=== PATIENT | female | born 1975 | race Caucasian/White ===

== ENCOUNTER 2023-10-07 08:13 | Emergency (ER) | payer OTHER, SELFPAY ==
[2023-10-07 08:16] VITALS: BP 200/120; RESP 20; TEMP 36.6; O2SAT 98; BMI 25.6
--- NOTE | 2023-10-07 08:25 | ECG_ITS ---
The [facility] Test Date: 2023-10-07 Pat Name: NINO GALLAGHER Department: Room: - Gender: Female Manager Paid: : 1975 Requested By: [id number] Order Number: [id number] Reading MD: MALDONADO MOSS Measurements Intervals [place] Rate: 75 P: 32 MT: 144 QRS: 34 QRSD: 82 T: 36 QT: 374 QTc: 403 Interpretive Statements 1100 Sinus rhythm 9110 normal ECG No previous ECG available for comparison Electronically Signed On 10-08-2023 7:01:27 EST by MALDONADO MOSS
--- NOTE | 2023-10-07 08:34 | CT_ITS ---
The [address] [address] Patient Name: NINO GALLAGHER MRN: [id number] date: 1975 Sex: F Assigned Patient Location: ER Current Patient Location: .[facility] Accession/Order Number: [id number] Exam Date: 10/07/2023 09:02 Report Date: 10/07/2023 09:23 At the request of: ALDEN SYED Procedure: CT head/brain wo con EXAM: CT head/brain wo con, CT cervical spine wo con HISTORY: Dizziness following fall 5 days ago COMPARISON: None. TECHNIQUE: Axial noncontrast CT imaging of the head and cervical spine was performed with coronal and sagittal reformats. This CT exam was performed using one or more of the following dose reduction techniques: Automated exposure control, adjustment of the MA and/or kV according to patient size, or use of iterative reconstruction technique. FINDINGS: CT head Calvarium/skull base: No evidence of acute fracture or destructive lesion. Mastoids and middle ears demonstrate no substantial mucosal disease. Paranasal sinuses: No air fluid levels. Brain: No acute intracranial hemorrhage. No acute large vascular territory infarct. No mass lesion or mass effect. No hydrocephalus. CT cervical spine Alignment: No substantial subluxation. Vertebrae: Vertebral body heights are maintained. No fracture. Craniocervical junction: No focal abnormality. Degenerative changes: Mild degenerative changes of lower cervical spine with posterior disc osteophyte complexes at C5-C6 and C6-C7 with moderate disc height loss at C7 and associated uncovertebral arthropathy at these levels greater on the left. There is associated mild canal stenosis and moderate left foraminal stenosis at C6. Additional Comments: Visualized portion of upper lungs are clear. Soft tissues of the neck are grossly unremarkable. CT/CT head/brain wo con IMPRESSION: 1. No CT evidence for acute intracranial process. 2. No acute fracture or malalignment of the cervical spine. Electronically authenticated by: JOAN KITCHEN Date: 10/07/2023 09:23
--- NOTE | 2023-10-07 08:51 | CT_ITS ---
The [address] [address] Patient Name: NINO GALLAGHER MRN: [id number] date: 1975 Sex: F Assigned Patient Location: ER Current Patient Location: .[facility] Accession/Order Number: [id number] Exam Date: 10/07/2023 09:02 Report Date: 10/07/2023 09:23 At the request of: ALDEN SYED Procedure: CT cervical spine wo con EXAM: CT head/brain wo con, CT cervical spine wo con HISTORY: Dizziness following fall 5 days ago COMPARISON: None. TECHNIQUE: Axial noncontrast CT imaging of the head and cervical spine was performed with coronal and sagittal reformats. This CT exam was performed using one or more of the following dose reduction techniques: Automated exposure control, adjustment of the MA and/or kV according to patient size, or use of iterative reconstruction technique. FINDINGS: CT head Calvarium/skull base: No evidence of acute fracture or destructive lesion. Mastoids and middle ears demonstrate no substantial mucosal disease. Paranasal sinuses: No air fluid levels. Brain: No acute intracranial hemorrhage. No acute large vascular territory infarct. No mass lesion or mass effect. No hydrocephalus. CT cervical spine Alignment: No substantial subluxation. Vertebrae: Vertebral body heights are maintained. No fracture. Craniocervical junction: No focal abnormality. Degenerative changes: Mild degenerative changes of lower cervical spine with posterior disc osteophyte complexes at C5-C6 and C6-C7 with moderate disc height loss at C7 and associated uncovertebral arthropathy at these levels greater on the left. There is associated mild canal stenosis and moderate left foraminal stenosis at C6. Additional Comments: Visualized portion of upper lungs are clear. Soft tissues of the neck are grossly unremarkable. CT/CT cervical spine wo con IMPRESSION: 1. No CT evidence for acute intracranial process. 2. No acute fracture or malalignment of the cervical spine. Electronically authenticated by: JOAN KITCHEN Date: 10/07/2023 09:23
--- NOTE | 2023-10-07 08:52 | ED.GENADUL1 ---
HPI - General Adult General Chief complaint: Head Injury Stated complaint: FALL/ DIZZINESS Time Seen by Provider: 10/07/23 08:31 Source: patient Mode of arrival: walk-in Limitations: no limitations History of Present Illness HPI narrative: Patient is a Did show female who is presenting to the Emergency Room today after head injury that occurred 5 days ago. Patient was walking with shoes on a wet floor, patient slipped and landed backwards and hit the back of her head. Patient is not loose consciousness that she is aware of. Patient's injury occurred last October 02. Patient then woke up on October 03 and was having headache and bilateral neck pain. Patient's had no nausea or vomiting. Patient has been taking Tylenol Motrin for pain. Patient was due to go back to work today and she continued to have headache and bilateral neck pain so she came into the Emergency Room for evaluation. Patient was able to eat Friday with no difficulty, patient ate yesterday and today with no difficulty, patient did have nausea and vomiting on Friday. Patient has no arm or leg concerns, no other back pain issues is Soft tissue bilateral neck. Patient is placed in the room, cervical collar was placed. Patient is alert and sensory, GCS of 15. Patient is aware that she has high blood pressure, patient told me that she is a DNR. DNR status was discussed, she does see a psychiatrist and does take medication for that. She takes no blood pressure medication. Patient says that she had her son age of 26, and she does not want to be resuscitated if needed. Education the patient can still seek medical care, high blood pressure, cholesterol, diabetes or other issues treated if needed. Patient is aware that she is a very high risk for cardiac event, stroke, or cardiovascular disease secondary to uncontrolled blood pressure. Patient states that she has hypertension, does not like to be in the hospital or see DrsLonny, but is aware that blood pressure should be treated. Patient has no other acute complaints this time. Patient was brought to the Emergency Room by a friend. 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 . All systems are negative except as noted/marked. All systems reviewed and otherwise negative. . Nurses note and vital signs reviewed and patient is not hypoxic. General: The patient appears well and in no apparent distress. Patient is resting comfortably on cart. Patient is not toxic, lethargic, or listless Skin: Warm, dry, no pallor noted. There is no rash noted. No petechiae, purpura. Head: Normocephalic, atraumatic, Patient's placed in a soft fell off her collar, patient has mild to moderate soft tissue tenderness palpation to paracervical soft tissue, no cervical midline tenderness palpation. Patient has no scalp hematoma. Eye: Normal conjunctiva, no drainage, EOMI. PERRL Ears, Nose, Mouth, and Throat: oral mucosa is moist. Nares patent. Mouth without vesicles. No hemotympanum, fraser signs, raccoon eyes Cardiovascular: Regular Rate and Rhythm, no murmur, gallop, rub Respiratory: Patient is in no distress, no accessory muscle use, lungs are clear to auscultation, no wheezing, rales or rhonchi Back: non-tender, no CVA tenderness bilaterally to percussion. No CT LS midline pain GI: soft, no tenderness to palpation, no masses appreciated. No rebound, guarding, or rigidity noted. No flank pain bilateral, No distention Musculoskeletal: Patient has full range of motion of all of the extremities, no motor, sensory, or focal neurological deficits Neurological: A&O x3, normal speech Psychiatric: Cooperative Related Data Home Medications Medication Instructions Recorded Confirmed alprazolam 1 mg tablet 1 mg PO TID PRN anxiety 10/07/23 10/07/23 cyclobenzaprine 10 mg tablet 10 mg PO Q8H PRN muscle spasm 10/07/23 10/07/23 lamotrigine 100 mg tablet 100 mg PO DAILY 10/07/23 10/07/23 ramelteon 8 mg tablet 8 mg PO BEDTIME 10/07/23 10/07/23 Allergies Allergy/AdvReac Type Severity Reaction Status Date / Time Latex, Natural Rubber Allergy Severe Verified 10/07/23 08:26 PFSH PFS Social History Smoking status: Light tobacco smoker Exam Constitutional Vital Signs, click to edit/add: Last Vital Signs Temp 98 F 10/07/23 08:16 Resp 20 10/07/23 08:16 BP 190/120 H 10/07/23 09:17 Pulse Ox 98 10/07/23 08:16 Course Vital Signs Vital signs: Vital Signs Temperature 98 F 10/07/23 08:16 Respiratory Rate 20 10/07/23 08:16 Blood Pressure 200/120 H 10/07/23 08:16 Pulse Oximetry 98 10/07/23 08:16 Temperature 98 F 10/07/23 08:16 Respiratory Rate 20 10/07/23 08:16 Blood Pressure 190/120 H 10/07/23 09:17 Pulse Oximetry 98 10/07/23 08:16 Medical Decision Making MDM Narrative Medical decision making narrative: CT brain and cervical spines show no acute findings. Patient's cervical collar was clinically and radiographically removed. Patient is aware of hypertension uncontrolled. Education was done on blood pressure medication, the need for follow-up for PCP and to take elevated blood pressure seriously because she is a significant risk for cardiovascular disease, myocardial infarction, stroke. Patient is not seen a PCP for years. Patient was provided a PCP list. Patient was educated on taking blood pressure once or twice a day and purchasing a blood pressure cuff at home. Patient is awareTake her blood pressure twice daily, record them, follow-up with PCP for definitive medication treatment needed. Education on work restrictions and postconcussion syndrome were done at bedside and on discharge. No questions at discharge. ECG Data Attestation: I personally reviewed and interpreted this ECG as follows: (EKG interpretation. Normal sinus rhythm at 75 beats a minute. Normal axis deviation. No acute ST elevation, no acute ectopy. QTC of 403) Discharge Plan Discharge Chief Complaint: Head Injury Clinical Impression: Uncontrolled hypertension, Closed head injury, Post-concussion syndrome, Cervical pain (neck) Patient Disposition: Home, Self-Care Time of Disposition Decision: 10:02 Condition: Fair Prescriptions / Home Meds: No Action alprazolam 1 mg tablet 1 mg PO TID PRN (Reason: anxiety) cyclobenzaprine 10 mg tablet 10 mg PO Q8H PRN (Reason: muscle spasm) lamotrigine 100 mg tablet 100 mg PO DAILY ramelteon 8 mg tablet 8 mg PO BEDTIME Instructions: Head Injury (ED), Post Concussion Syndrome (ED), Hypertension (ED), Acute Neck Pain (ED) Additional Instructions: Your Blood pressure has been elevated, it is equal in both arms. You need to follow up and establish PCP and start to have Medication prescribed for her blood pressure if indicated. Take your blood pressure Once or twice a day with a home blood pressure cuff, record them daily. You are starting to create a blood pressure log to see if you have chronic elevated blood pressure medication as needed. Education on postconcussion syndrome was done at bedside and on discharge paperwork. Alternate Tylenol Motrin as needed at home for pain. Use ice and cervical stretching daily to help with neck pain. Stand Alone Forms: Portal Instructions Referrals: Physician,Non-Staff, MD [Primary Care Provider] - 1 week
[2023-10-07 09:17] VITALS: BP 190/120
[2023-10-07 10:33] VITALS: BP 180/110
== END 2023-10-07 10:41 | disposition home or self-care (01) ==
PROVIDERS: Emergency Provider Emergency Medicine
DX: S09.8XXA Other specified injuries of head, initial encounter (principal); F17.200 Nicotine dependence, unspecified, uncomplicated; M54.2 Cervicalgia; I10 Essential (primary) hypertension; W01.0XXA Fall on same level from slipping, tripping and stumbling without subsequent striking against object, initial encounter; F07.81 Postconcussional syndrome
CPT/HCPCS: 70450; 72125; 93005; 99285

== ENCOUNTER 2025-08-04 08:36 | Emergency (ER) | payer OTHER, SELFPAY ==
--- OUTSIDE RECORDS SUMMARY | 2025-07-21 08:00 | XMS_ITS | Encounter Summary ---
Author Organization [facility] Address [address] [place] [address] Care Team Providers Care Medical Front Desk Specialist Name Role Phone Unavailable Primary Care Provider Unavailabl e Reason for Visit * ReasonCommentsFollow-upPain Encounter Details DateTypeDepartmentCare Team (Latest Contact Info)Cbynzkrhcun72/16/2025 8:00 AM EDTOffice Visit [facility] [address] [place] [address] [address] [place] [address] Venu Murphy MD [address] [place] [address] Closed fracture of distal ends of right radius and ulna with routine healing, subsequent encounter (Primary Dx) Social History Tobacco UseTypesPacks/DayYears UsedDateSmoking Tobacco: NeverSmokeless Tobacco: Never Tobacco Cessation:Counseling Given: Not Answered Alcohol UseStandard Drinks/WeekCommentsNot Currently0 (1 standard drink = 0.6 oz pure alcohol)Social, havent for yearsHumiliation, Afraid, Rape, and Kick questionnaireAnswerDate RecordedWithin the last year, have you been afraid of your partner or ex-partner?No07/21/2025Emotionally AbusedNot on file07/21/2025 Physically AbusedNot on file07/21/2025Sexually AbusedNot on file07/21/2025 Overall Financial Resource Strain (CARDIA)AnswerDate RecordedHow hard is it for you to pay for the very basics like food, housing, medical care, and heating?Not hard at all09/19/2022HQ-2AnswerDate RecordedPatient Health Questionnaire-2 [id number] [place] [facility] - Occupational Stress QuestionnaireAnswerDate RecordedDo you feel stress - tense, restless, nervous, or anxious, or unable to sleep at night because yourmind is troubled all the time - these days?Not at all09/19/2022RAPARE - TransportationAnswerDate RecordedIn the past 12 months, has lack of transportation kept you from medical appointments or from getting medications?No09/19/2022In the past 12 months, has lack of transportation kept you from meetings, work, or from getting things needed for daily living?No09/19/2022CommentsUnknownSex and Gender InformationValueDate RecordedSex Assigned at HxlzmAbtrhf87/16/2025 7:49 AM EDT Legal SznSzajrw96/30/2022 12:31 AM EDTGender LpqvhdiiVsksiw19/16/2025 7:49 AM EDTSexual OrientationChoose not to lnqmheic82/16/2025 7:49 AM EDTdocumented as of this encounter Last Filed Vital Signs Vital SignReadingTime TakenCommentsBlood Pressure--Pulse--Temperature-- Respiratory Rate--Oxygen Saturation--Inhaled Oxygen Concentration--Xbqrnk35 kg (150 lb)07/21/2025 8:10 AM EDTHeight--Body Mass Index27.44111/20/2021 10:30 AM ESTdocumented in this encounter Functional Status * Fall RiskQuestionAnswerDate of AssessmentAuthorWorried about fallin 07/21/2025 8:00 AM Donna Curry MAOne or more falls in the last year:No 07/21/2025 8:00 AM Donna Curry MAFeels unsteady when walkin 8:00 AM Donna Curry MA * Over the past 2 weeks, how often have you been bothered by any of the following problems?QuestionAnswerDate of AssessmentAuthorLittle interest or pleasure in doing thingsNot at all07/21/2025 8:00 AM Donna Curry MA Feeling down, depressed, or hopelessNot at all07/21/2025 8:00 AM Donna Curry, [facility] Health Questionnaire-2 [id number] 8:00 AM Donna Curry MA documented as of this encounter Progress Notes * Venu Murphy MD - 07/21/2025 8:00 AM EDT Images from the original note were not included. Orthopaedic Surgery Subjective 07/21/25 Pati Koch is a 49 y.o. RHD female presenting for follow up of right wrist pain. She was originally seen in 2021 for an extra-articular distal radius fracture she sustained in 2020, which was treated nonoperatively with conservative management and occupational therapy. Today she presents with an application for disability. She explains they added her wrist as a diagnosis for the application. She is endorsing pain and swelling of the wrist, with some radiation into the upper arm after prolonged use. Mobic for pain has been helping. She has also been icing and bracing for other conservative management. She is currently on a 40 pound restriction from occupational health. History Surgical History[1] Medical History[2] Objective General: There is no height or weight on file to calculate BMI. No acute distress, comfortable Right UE/Hand: Inspection- no swelling, no deformity or contracture, supple skin with no lesions Non-tender to palpation throughout, including wrist and lateral epicondyle palpation ROM: Able to make fist, flexion to 50 degrees, extension to 70. Full pronation and supination. Ulnar deviation to 35 degrees, radial deviation to 25 degrees. Strength: keeper head 5/5, thumb 5/5, interossei 5/5. wrist extension/flexion 5/5 Sensation: intact over median, ulnar, and radial nerve distributions Thumb: normal A1 elsie and AROM, Index finger: normal A1 elsie and AROM, Long finger: normal A1 elsie and AROM, Ring finger: normal A1 elsie and AROM, and Small finger: normal A1 elsie and AROM Negative carpal tunnel compression test and Negative Jimena's test Cardiovascular: Well-perfused digits Imaging No imaging performed at this visit. Assessment/Plan Pati Koch is a 49 y.o. female with right extra-articular distal radius fracture sustained in 2020. She is here to discuss application for disability. -Continue 40 lb restriction as described by occupational health -Return to clinic as needed Nito Allen Orthopaedic Surgery 07/21/25 7:52 AM As the teaching physician, I have personally performed or re-performed the history of present illness, physical exam and medical decision-making activities of the encounter and verified the medical student's documentation. I made pertinent changes as necessary to ensure accurate documentation. There may be additional comments below. Additional Comments: [1] No past surgical history on file. [2] Past Medical History: Diagnosis Date Radius fracture 2021 right documented in this encounter Plan of Treatment Not on file documented as of this encounter Visit Diagnoses Diagnosis Closed fracture of distal ends of right radius and ulna with routine healing, subsequent encounter- Primary documented in this encounter
[2025-08-04] VITALS (16 sets, daily range): BP systolic 147–209; BP diastolic 100–138; PULSE 70–95; TEMP 36.9; O2SAT 92–99; BMI 26.5
--- NOTE | 2025-08-04 08:53 | ECG_ITS ---
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 Measurements Intervals [place] Rate: 91 P: 35 [place]: 144 QRS: 26 QRSD: 86 T: 54 QT: 346 QTc: 395 Interpretive Statements 1100 Sinus rhythm 6220 Possible left atrial enlargement 9130 borderline ECG Compared to ECG 10/07/2023 08:25:24 No significant changes Electronically Signed On 08-04-2025 13:17:42 EDT by CHRISTI ALEXANDRE M.D.
--- NOTE | 2025-08-04 08:53 | XR_ITS ---
The [address] [address] Patient Name: NINO GALLAGHER MRN: [id number] date: 1975 Sex: F Assigned Patient Location: ED.MAIN Current Patient Location: ED.MAIN Accession/Order Number: [id number] Exam Date: 08/04/2025 09:15 Report Date: 08/04/2025 09:32 At the request of: LAURITA SHERIDAN Procedure: XR chest 1V Plain film chest Single view HISTORY: Chest pain COMPARISON: None FINDINGS: SUPPORT DEVICES: None POSTSURGICAL CHANGES: None HEART: Within normal limits PULMONARY DONALDO: Within normal limits MEDIASTINUM: Unremarkable LUNGS AND PLEURA: No acute lung process, pleural effusion or pneumothorax identified. BONY STRUCTURES: Intact ADDITIONAL FINDINGS None XR/XR chest 1V IMPRESSION: No acute process. Impression dictated by: Jamel Franco M.D. 08/04/2025 9:32 AM Dictation Location: [place] [address] Electronically authenticated by: [id number] Date: 08/04/2025 09:32
--- NOTE | 2025-08-04 08:54 | ED_ITS ---
HPI - Chest Pain General Chief Complaint: Chest Pain Stated Complaint: CHEST PAIN Time Seen by Provider: 08/04/25 08:52 Source: patient Mode of arrival: walk-in Limitations: no limitations History of Present Illness HPI narrative: cc - chest pain Started this morning around 730am. Pain radiates from mid chest into ribs and back. Admits to some nausea but no vomiting. Told the pattie nurse that the symptoms felt different than her prior symptoms associated with panic attacks. She said that she stopped taking her meds for BP on my own a few weeks ago. She said that she does not want to take any prescribed meds. She said that she lost her son recently and has no interest in self-care. She denies being suicidal. I just don't want to take any medicines . Related Data Home Medications ?Medication ?Instructions ?Recorded ?Confirmed alprazolam 1 mg tablet 1 mg PO TID PRN anxiety 11/2908/04/25 lamotrigine 100 mg tablet 100 mg PO DAILY 10/07/23 Allergies Allergy/AdvReac Type Severity Reaction Status Date / Time Latex, Natural Rubber Allergy Severe Verified 10/07/23 08:[address] [facility] Social History Smoking status: Light tobacco smoker Little interest or pleasure in doing things: not at all Feeling down, depressed, or hopeless: several days Exam Narrative Exam Narrative: Nurses notes and vital signs reviewed and patient is not hypoxic. afebrile General: Well-appearing and in no apparent distress. Skin: Warm, dry, no pallor noted. Eye: Pupils are equal, round and EOMI. No scleral icterus. Ears, Nose, Mouth, and Throat: Oral mucosa is moist Cardiovascular: Regular Rate and Rhythm without murmur, gallop or rub. Respiratory: No accessory muscle use or respiratory distress. Lungs are clear to auscultation, no wheezing, rales or rhonchi Chest Wall: no tenderness Musculoskeletal: normal ROM, no calf or popliteal tenderness, no lower extremity edema/swelling GI: Abdomen is soft, non-distended. Normal bowel sounds. No tenderness to palpation. No rebound, guarding, or rigidity noted. Neurological: A&O x4. No cranial nerve dysfunction observed. No truncal ataxia. Moves all extremities. Sensation intact. Psychiatric: Cooperative and interactive. Normal mood and affect. Constitutional Vital Signs, click to edit/add: Last Vital Signs Temp 98.4 F 08/04/25 08:47 Pulse 90 08/04/25 08:47 Resp 20 08/04/25 08:47 BP 184/120 H 08/04/25 09:00 Pulse Ox 99 08/04/25 08:47 O2 Del Method Room Air 08/04/25 08:47 Course Vital Signs Vital signs: Vital Signs Temperature 98.4 F 08/04/25 08:47 Pulse Rate 90 08/04/25 08:47 Respiratory Rate 20 08/04/25 08:47 Blood Pressure 201/118 H 08/04/25 08:47 Pulse Oximetry 99 08/04/25 08:47 Oxygen Delivery Method Room Air 08/04/25 08:47 Temperature 98.4 F 08/04/25 08:47 Pulse Rate 90 08/04/25 08:47 Respiratory Rate 20 08/04/25 08:47 Blood Pressure 184/120 H 08/04/25 09:00 Pulse Oximetry 99 08/04/25 08:47 Oxygen Delivery Method Room Air 08/04/25 08:47 MDM - Chest Pain MDM Narrative Medical decision making narrative: Patient was placed on cardiac rehabilitation program director and EKG obtained. Blood drawn and sent for evaluation. She was ordered to receive labetalol for her markedly elevated blood pressure. CBC was notable for anemia which appears to be iron deficient-based. Hemoglobin 9 BMP was normal and troponin and BNP are negative. EKG without ST elevation or other ischemic changes. Chest x-ray negative. Her blood pressure improved with administration of labetalol. I offered to give her IV Vasotec but she refused. I talked to her about her results and my concern about her markedly elevated blood pressure and refusal to receive treatment for it. She and I discussed the risks associated with untreated high blood pressure including heart attack, stroke, kidney failure, blindness and a variety of other potential issues inclu ding . I offered to prescribe her medication for blood pressure control and she refused. She does not have a primary care provider so I offered to refer her to 1 and she refused that as well. She told me anything that gets prescribed or any referrals that are made I am not going to take the medicine I am not going to follow-up. Differential Diagnosis Differential diagnosis: Likely pneumothorax, stable angina, unstable angina pectoris, atypical chest pain, st elevation myocardial infarction, costochondritis and chest pain Medical Records Data Attestation: I reviewed the patient's medical records. Lab Data Attestation: I reviewed the patient's lab results. Labs: Lab Results 08/04/25 Range/Units 08:55 WBC 4.4 (4.0-11.0) 10^3/uL RBC 4.85 (4.20-5.40) 10^6/uL Hgb 9.0 L (12.0-16.0) g/dL Hct 32.5 L (36.0-48.0) % MCV 67.0 L (81.0-99.0) fL MCH 18.6 L (26.7-34.0) pg MCHC 27.7 L (29.9-35.2) g/dL RDW 18.2 H (11.0-15.0) % Plt Count 380 (150-450) 10^3/uL MPV 8.6 L (9.5-13.5) fL Neut % (Auto) 48.6 (43.0-75.0) % Lymph % (Auto) 34.3 (20.5-60.0) % [place] % (Auto) 8.0 (1.7-12.0) % Eos % (Auto) 5.9 (0.9-7.0) % Baso % (Auto) 3.0 H (0.2-2.0) % Neut # (Auto) 2.1 (1.4-6.5) 10^3/uL Lymph # (Auto) 1.5 (1.2-3.8) 10^3/uL [place] # (Auto) 0.4 (0.3-0.8) 10^3/uL Eos # (Auto) 0.3 (0.0-0.7) 10^3/uL Baso # (Auto) 0.1 (0.0-0.1) 10^3/uL Abs Immat Gran (auto) 0.01 (0.00-0.03) 10^3/uL Imm/Tot Granulo (auto) 0.2 (0.0-0.5) % Sodium 137 (136-145) mmol/L Potassium 4.3 (3.5-5.1) mmol/L Chloride 102 (98-107) mmol/L Carbon Dioxide 26.0 (21.0-32.0) mmol/L Anion Gap 13.3 BUN 9.0 (7.0-18.0) mg/dL Creatinine 0.96 (0.55-1.02) mg/dL Est GFR ( Amer) >60 (>=60 mL/min/1.73m^2) Est GFR (Non-Af Amer) >60 (>=60 mL/min/1.73m^2) BUN/Creatinine Ratio 9.4 Glucose 99 (74-106) mg/dL Calcium 9.6 (8.5-10.1) mg/dL Troponin I High Sens 10.3 (4.0-51.3) pg/mL NT-Pro-B Natriuret Pep 380.0 (<=900.0) pg/mL Imaging Data Chest x-ray: Attestation: I have reviewed the pertinent imaging results. Radiologist's impression: ITS Impressions Chest X-Ray 08/04/25 08:53 IMPRESSION: No acute process. Impression dictated by: Jamel Franco M.D. 08/04/2025 9:32 AM Dictation Location: [place] [address] Electronically authenticated by: [id number] Y Date: 08/04/2025 09:32 ECG Data Attestation: I personally reviewed and interpreted this ECG as follows: Interpretation: EKG interpretation:Emergency Department physician interpretation.Normal sinus rhythm at 91bpm. Normal axis, normal intervals and no ST segment elevation or depression. Possible left atrial enlargement. Discharge Plan Discharge Chief Complaint: Chest Pain Clinical Impression: Uncontrolled hypertension, Chest pain Patient Disposition: Home, Self-Care Time of Disposition Decision: 09:55 Prescriptions / Home Meds: No Action alprazolam 1 mg tablet 1 mg PO TID PRN (Reason: anxiety) lamotrigine 100 mg tablet 100 mg PO DAILY Print Language: Icelandic Instructions: Chest Pain (ED), Hypertension (ED) Referrals: Physician,Non-Staff, MD [Primary Care Provider] - 1 week
[2025-08-04] MEDS: LABETALOL HCL 100 MG/20 ML MDV 20 MG IVP (09:03)
[2025-08-04 09:08] LABS: Hematocrit 32.5 % (36.0-48.0); Hemoglobin 9.0 g/dL (12.0-16.0); Immature Granulocytes Abs Auto 0.01 10^3/uL (0.00-0.03); Immature Granulocytes Pct Auto 0.2 % (0.0-0.5); Lymphocytes Absolute Auto 1.5 10^3/uL (1.2-3.8); Mean Corpuscular HGB Conc 27.7 g/dL (29.9-35.2); Mean Corpuscular Hemoglobin 18.6 pg (26.7-34.0); Mean Corpuscular Volume 67.0 fL (81.0-99.0); Platelet Count 380 10^3/uL (150-450); Red Blood Count 4.85 10^6/uL (4.20-5.40); White Blood Count 4.4 10^3/uL (4.0-11.0)
--- OUTSIDE RECORDS SUMMARY | 2025-08-04 09:10 | XMS_ITS | Clinical Summary ---
Author Organization [facility] Address [address] [facility] [place] [address] Care Team Providers Care Diesel Service Journeyman Name Role Phone Unavailable Primary Care Provider Unavailabl e Social History Tobacco UseTypesPacks/DayYears UsedDateSmoking Tobacco: Never Assessed CommentsUnknownSex and Gender InformationValueDate RecordedSex Assigned at Not on fileLegal JkpIyllbp48/15/2023 11:09 PM EDTGender IdentityNot on file Sexual OrientationNot on file Plan of Treatment Not on file
--- OUTSIDE RECORDS SUMMARY | 2025-08-04 09:10 | XMS_ITS | Clinical Summary ---
Author Organization [facility] Address [id number] [place] [address] Care Team Providers Care Day Light Relief Operator Name Role Phone No Pcp, No Pcp Primary Care Provider Unavailabl e Allergies Active AllergyReactionsCriticalityNoted DateCommentsLatex, Natural Rubber 05/30/2017 Medications * This document contains information received from the source organization and may not represent a complete record from that organization. MedicationSigDispense QuantityRefillsLast FilledStart DateEnd DateStatus diclofenac sodium (VOLTAREN) 1 % gel 01/05/2022ctive meloxicam (MOBIC) 7.5 mg tablet 11/13/2023ctive lamoTRIgine (LaMICtal) 100 mg tablet Indications:Bipolar II disorder (CMS-HCC)Take 2 tablets (200 mg total) by mouth in the morning and 2 tablets (200 mg total) before bedtime. 360 tablet 5Active ALPRAZolam (XANAX) 1 mg tablet Indications:Panic disorderTake 1 tablet (1 mg total) by mouth 4 (four) times a day as needed for anxiety. 120 tablet 5Active lamoTRIgine (LaMICtal) 100 mg tablet Indications:Bipolar II disorder (CMS-HCC)Take 2 tablets (200 mg total) by mouth in the morning and 2 tablets (200 mg total) before bedtime. 120 tablet 507///05/2025Discontinued ALPRAZolam (XANAX) 1 mg tablet Indications:Panic disorderTake 1 tablet (1 mg total) by mouth 4 (four) times a day as needed for anxiety. 120 tablet 108/12/Discontinued(Reorder) Active Problems ProblemNoted DateDiagnosed DateDepression with suicidal gwyosmys05/09/2025 Bipolar disorder, current episode mixed, severe, without psychotic features 4Complicated aakbadlceqn88/06/2017Panic gwfolxzl63/06/2017 Resolved Problems ProblemNoted DateDiagnosed DateResolved DateBipolar II /01/2018 5Bipolar dqatqsiygo12 Encounters * This document contains information received from the source organization and may not represent a complete record from that organization. DateTypeDepartmentCare SboaCpqqvjamtwi33/14/8787Amhbku34/13/7878Ocdhvm11/12/2025 Travelfrom Last 3 Months Social History Tobacco UseTypesPacks/DayYears UsedDateSmoking Tobacco: Never AssessedChildcare AnswerDate DdwcxrqwQeybqtzdbPcmorxd77/12/2019EmploymentAnswerDate Recorded EhjjytkhgdYpkrkwj19/12/2019Hunger ScreeningAnswerDate RecordedWithin the past 12 months we worried whether our food would run out before we got money to buy more.Never True05/17/2025Within the past 12 months the food we bought just didn't last and we didn't have money to get more.Never True05/17/2025Purpose - LifeAnswerDate RecordedPurpose and direction in kmvxVlovqmi42/25/2021 CommentsUnknownSex and Gender InformationValueDate RecordedSex Assigned at Not on fileLegal BtuOdowox42/06/2015 11:40 AM EDTGender IdentityNot on file Sexual OrientationNot on file Last Filed Vital Signs Vital SignReadingTime TakenCommentsBlood Cphbjhmy216/4927705/17/2025 1:15 PM EDT Ufwdq521105/17/2025 1:15 PM EDTTemperature--Respiratory Rate--Oxygen Saturation-- Inhaled Oxygen Concentration--Kznsxz43.1 kg (148 lb)04/19/2025 2:52 PM EDTHeight --Body Mass Index-- Plan of Treatment Health MaintenanceDue DateLast DoneCommentsDepression Mcxxjkfma36/11/1985Tobacco Bcsfdcobh37/11/1985Adult BMI Zseiogtys43/11/1991DTaP,Tdap and Td Vaccines (1 - Tdap)1992Pap Smear1994Zoster (Shingles) Vaccine (1 of 2)2023 Influenza Mlknjdt0306/06/2025 Medical Devices Not on file Insurance Care Teams Team MemberRelationshipSpecialtyStart DateEnd Date No Pcp, No Pcp DONALDO [place] [id number] [facility]17
--- OUTSIDE RECORDS SUMMARY | 2025-08-04 09:10 | XMS_ITS | Clinical Summary ---
Author Organization [facility] Address [address] [place] [address] Care Team Providers Care Nail Maker Name Role Phone Unavailable Primary Care Provider Unavailabl e Allergies Active AllergyReactionsCriticalityNoted DateCommentsLatex, Natural Rubber 05/30/2017 Medications MedicationSigDispense QuantityRefillsLast FilledStart DateEnd DateStatus lamoTRIgine (LaMICtal) 150 mg tablet lamotrigine 150 mg gnwiow4704/11/2022ctive ALPRAZolam (Xanax) 1 mg tablet alprazolam 1 mg tablet TAKE 1 TABLET BY MOUTH NEEDED IN THE MORNING, AT NOON AND IN THE EVENING FOR ANXIETY.05/01/2022ctive diclofenac (Voltaren) 1 % topical gel diclofenac 1 % topical gel APPLY 1-2 GRAMS TO THE AFFECTED AREA TWICE DAILY FOR 30 DAYS01/05/2022ctive ibuprofen 600 mg tablet ibuprofen 600 mg tablet TAKE 1 TABLET BY MOUTH EVERY 6 HOURS NEEDED. TAKE WITH FOODActive lidocaine (Lidoderm) 5 % patch lidocaine 5 % topical patchActive methylPREDNISolone (Medrol) 4 mg tablet Take 4 mg by mouth in the morning.Active meloxicam (Mobic) 7.5 mg tablet 11/13/2023ctive Active Problems No known active problems Encounters DateTypeDepartmentCare XqixSvevpjeaerv00/16/2025 8:00 AM EDTOffice Visit [address] [place] [address] Venu Murphy MD Closed fracture of distal ends of right radius and ulna with routine healing, subsequent encounter (Primary Dx)07/01/2025Telephone [address] [place] [address] Anjali Parrish MA Appointmentfrom Last 3 Months Family History Medical HistoryRelationNameCommentsCancerFatherJerome dorobekCancerMotherLaDonna DorobekRelationNameStatusCommentsFatherJerome dorobekAliveMotherLaDonna Dorobek Alive Social History Tobacco UseTypesPacks/DayYears UsedDateSmoking Tobacco: NeverSmokeless [...] housing, medical care, and heating?Not hard at all2PHQ-2AnswerDate RecordedPatient Health Questionnaire-2 Sbdsp863Fincedar [facility] [place] of Occupational [facility] - Occupational Stress QuestionnaireAnswerDate [...] or from getting things needed for daily living?No2CommentsUnknownSex and Gender InformationValueDate RecordedSex Assigned at FwaziFitygc95/16/2025 7:49 AM EDT Legal TmcBklawx89/30/2022 12:31 AM EDTGender CdqbnasuErmofa98/16/2025 7:49 AM EDTSexual OrientationChoose not to /16/2025 7:49 AM EDT Last Filed Vital Signs Vital SignReadingTime TakenCommentsBlood Pressure--Pulse--Temperature-- Respiratory Rate--Oxygen Saturation--Inhaled Oxygen Concentration--Pwuctz53 kg (150 lb)07/21/2025 8:10 AM KQNPoogbu071.5 cm (5' 2 )09/19/2022 10:30 AM ESTBody Mass Index27.44111/20/2021 10:30 AM EST Plan of Treatment Health MaintenanceDue DateLast DoneCommentsCT Asmeumscclzx1973Colonoscopy 1973Colorectal Cancer Ssrqyjxhm1973FIT-DNA1973FIT1973 FOBT1973 2887Gbhdtvarsntrl1973Hepatitis B Vaccines (1 of 3 - 19+ 3-dose series)1992Pap Smear1994Adult Vcgbvqa6308/16/1995Cervical Cancer Qvveuswjg31/11/2003HPV/Fatxmn2608/16/20036721Akobshixa71/11/2013Zoster Vaccines (1 of 2)2023Influenza Vaccine (#1)2025Depression Difkvvujh81/16/2026 07/21/2025HIB VaccinesAged OutNo longer eligible based on patient's age to complete this topicHPV VaccinesAged OutNo longer eligible based on patient's age to complete this topicIPV VaccinesAged OutNo longer eligible based on patient's age to complete this topicMeningococcal B VaccineAged OutNo longer eligible based on patient's age to complete this topicMeningococcal VaccineAged OutNo longer eligible based on patient's age to complete this topicPneumococcal Vaccine: Pediatrics (0 to 5 Years) and At-Risk Patients (6 to 64 Years)Aged Out No longer eligible based on patient's age to complete this topicRotavirus VaccinesAged OutNo longer eligible based on patient's age to complete this topic Insurance
--- OUTSIDE RECORDS SUMMARY | 2025-08-04 09:10 | XMS_ITS | Encounter Summary ---
Author Organization [facility] Address [address] [place] [address] Care Team Providers Care Field Collector Name Role Phone Unavailable Primary Care Provider Unavailabl e Reason for Visit * ReasonOnset AdfbGloybvmrZghmlprhnfz64/26/2025 Encounter Details DateTypeDepartmentCare Team (Latest Contact Info)Nsiesgllxcs06/26/2025Telephone [facility] [address] [place] [address] [place] [address] Anjali Parrish MA Appointment Social History Tobacco UseTypesPacks/DayYears UsedDateSmoking Tobacco: NeverSmokeless Tobacco: NeverAlcohol UseStandard Drinks/WeekCommentsNever0 (1 standard drink = 0.6 oz pure alcohol)Humiliation, Afraid, Rape, and Kick questionnaireAnswerDate RecordedWithin the last year, have you been afraid of your partner or ex-partner?No07/21/2025Emotionally AbusedNot on file07/21/2025Physically Abused Not on file07/21/2025Sexually AbusedNot on file07/21/2025Overall Financial Resource Strain (CARDIA)AnswerDate RecordedHow hard is it for you to pay for the very basics like food, housing, medical care, and heating?Not hard at all 09/19/2022HQ-2AnswerDate RecordedPatient Health Questionnaire-2 Score0 07/21/2025[facility] [place] [facility]ational Health - Occupational Stress QuestionnaireAnswerDate RecordedDo you feel stress - tense, restless, nervous, or anxious, or unable to sleep at night because yourmind is troubled all the time - these days?Not at all2PRAPARE - TransportationAnswerDate RecordedIn the past 12 months, has lack of transportation kept you from medical appointments or from getting medications?No09/19/2022In the past 12 months, has lack of transportation kept you from meetings, work, or from getting things needed for daily living?No2CommentsUnknownSex and Gender InformationValueDate RecordedSex Assigned at SrtugZchaow2025 7:49 AM EDT Legal EojMyamtb42/30/2022 12:31 AM EDTGender KubpsfyrOurmyv98/16/2025 7:49 AM EDTSexual OrientationChoose not to hncpdetr00/16/2025 7:49 AM EDTdocumented as of this encounter Functional Status * Fall RiskQuestionAnswerDate [...] or hopelessNot at all07/21/2025 8:00 AM Donna Curry MAPatient Health Questionnaire-2 Snwcn718 8:00 AM Donna Curry MA documented as of this encounter Miscellaneous Notes * Telephone Encounter - Becky Ryan - 07/05/2025 1:18 PM EDT Please register this patient * Telephone Encounter - Anjali Parrish MA - 07/01/2025 11:40 AM EDT Patient called to schedule a new patient appointment with our office. Patient wants to be seen for: right wristq Patient had X ray done at [facility] from 2021 Patient has Not had any surgery or procedures on this body part Patient saw Jeffrey for this issues. They were not referred to us from this provider. This appointment is not a second opionion Needs medical records for medical residential This appointment IS NOT related to a work related injury This appointment IS related to work Claim#: [id number] SSN: [id number] documented in this encounter Plan of Treatment Not on file documented as of this encounter Visit Diagnoses Not on filedocumented in this encounter
--- OUTSIDE RECORDS SUMMARY | 2025-08-04 09:17 | XMS_ITS | CCD ---
Author Organization [facility] Care Team Providers Care Gallery Intern Name Role Phone Richelle Broderick Unavailable PAY, DR RUANO Admitting Unavailable REQUEST, NONE LISTED Primary Care Unavaila ble PAY, DR RUANO Attending Unavailable REQUEST, NONE LISTED Primary Care Unavaila ble ZIEBER, DR MARIBELL Pardo Consulting Unavailable BERT, DORIAN Admitting Unavailable BERT, DORIAN Attending Unavailable BERT, DORIAN Consulting Unavailable REQUEST, NONE LISTED Primary Care Unavaila ble BERT, DORIAN Admitting Unavailable BERT, DORIAN Attending Unavailable ZIEBER, DR MARIBELL Pardo Consulting Unavailable BERT, DORIAN Consulting Unavailable REQUEST, NONE LISTED Primary Care Unavaila ble LIANNA ADDISON Admitting Unavailable CHARLEY JOHNSON Consulting Unavailable LIANNA ADDISON Attending Unavailable LIANNA ADDISON Consulting Unavailable JADA RAWLS Attending Unavailable NO PCP, NO PCP Primary Care Unavailable SINAIJADA MCKENNA Attending Unavailable NO PCP, NO PCP Primary Care Unavailable JADA RAWLS Attending Unavailable NO PCP, NO PCP Primary Care Unavailable SINAIJADA MCKENNA Attending Unavailable NO PCP, NO PCP Primary Care Unavailable SINAIJADA MCKENNA Attending Unavailable NO PCP, NO PCP Primary Care Unavailable SINAIJADA MCKENNA Attending Unavailable NO PCP, NO PCP Primary Care Unavailable SINAIJADA MCKENNA Attending Unavailable JADA RAWLS Referring Unavailable NO PCP, NO PCP Primary Care Unavailable JADA RAWLS Attending Unavailable NO PCP, NO PCP Primary Care Unavailable WENDY BERRY Attending Unavailable Allergies Allergy ClassificationReported Allergen(s)Allergy TypeDate of OnsetReaction(s) Facility (3 sources)Latex Exam GlovesDrug allergyUnkMercy Hospital J[facility]lin Rolith Other (1 source)LatexDrug allergy (disorder)22-81-9272Dbw [facility] Repository (2 sources)natural latex rubber; Translations: [LATEX, NATURAL RUBBER]Propensity to adverse reactions to drug (disorder)83-73-7249ZhoIbqygw Repository Medications Current Medications MedicationDrug Class(es)DatesSig (Normalized)Sig (Original)ALPRAZolam 0.5 mg oral tablet (3 sources)Benzodiazepinetake 1 tablet by mouth every twelve hoursXanax 0.5 MG 1 tablet Orally Twice a day Activediclofenac sodium 0.01 mg/mg topical gel (2 sources)Nonsteroidal Anti-inflammatory DrugDiclofenac Sodium 1 % APPLY 1-2 GRAMS TO THE AFFECTED AREA TWICE DAILY FOR 30 DAYS for 25 Activeibuprofen 600 mg oral tablet (3 sources)Nonsteroidal Anti-inflammatory Drugtake 1 tablet by mouth three times daily at mealtime as neededIbuprofen 600 MG 1 tablet with food or milk as needed Orally Three times a day ActivelamoTRIgine 150 mg oral tablet (3 sources)Mood Stabilizer, Anti-epileptic Agenttake 1 tablet by mouth once daily in the morningLaMICtal 150 MG 1 tablet Orally qam for 30 days Active Vitamin D (3 sources)Vitamin D Active Completed/Discontinued Medications MedicationDrug Class(es)DatesSig (Normalized)Sig (Original)lisinopril 20 mg oral tablet (3 sources)Angiotensin Converting Enzyme InhibitorLisinopril 20 MG 1 Orally daily prn Not-Taking Problems Active Problems Problem ClassificationProblemDateDocumented DateEpisodic/ChronicAnxiety disorders (1 source)Panic disorder [episodic paroxysmal anxiety]; Translations: [Panic disorder (episodic paroxysmal anxiety)]Onset: 27-49-4752SuxwituKquopgjr of upper limb (3 sources)Unspecified fracture of the lower end of left radius, initial encounter for closed fracture; Translations: [Unspecified fracture of the lower end of left radius, initial encounter for closed ybvflszmT72.502A]Onset: 07-13-2021 Resolved: 44-43-4297FakjjoonNimvijro of upper limb (9 sources)Unspecified fracture of the lower end of right radius, subsequent encounter for closed fracture with routine healing; Translations: [Unspecified fracture of right forearm, initial encounter for closed fracture]Onset: 65-03-3943DokbweipJsye disorders (5 sources)Bipolar I disorder; Translations: [Bipolar 1 disorder]Onset: 00-98-6963LqyootsSynqkkyv codes; unclassified (2 sources)Pain; Translations: [Pain]Onset: 77-89-4886Tcscozdn Past or Other Problems Problem ClassificationProblemDateDocumented DateEpisodic/ChronicE Codes: Fall (1 source)Fall on same level, unspecified, initial encounter; Translations: [FALL SAME LEVEL UNSPECIFIED INITIAL]Onset: 07-19-0008SkbhdgauBtvjm non- traumatic joint disorders (4 sources)Pain in right wrist; Translations: [PAIN IN RIGHT WRIST]Onset: 63-20-9278Lesirjhh Results Test NameValueInterpretationReference RangeFacilityOffice Visiton 07-21-2025 Follow-up [id number] Pati Gallagher 1975 F [facility] Provider Department Center 07/21/2025 Damien-JORI BERRY Family History Problem Relation Age of Onset Cancer Mother Cancer Father Family Status - Relation Status Age at Mother Alive Father Alive Level of Service:99243 OK OFFICE/OUTPATIENT ESTABLISHED LOW MDM 20 MIN Reason for Visit and Comments: Follow-up [497936] Pain [136][facility]36on [id number] register this patientNormalUniJoint Township District Memorial Hospital36on Patient called to schedule a new patient appointment with our office. Patient wants to be seen for: right wristq Patient had X ray done at [facility] from 2021 Patient has Not had any surgery or procedures on this body part Patient saw Jeffrey for this issues. They were not referred to us from this provider. This appointment is not a second opionion Needs medical records for medical mcc This appointment IS NOT related to a work related injury This appointment IS related to work Claim#: [id number] SSN: [id number] Township District Memorial HospitalTelephoneon 07-01-2025 [id number] Pati Gallagher 1975 [facility] Provider Department Center 07/01/2025 53637-ZPQVPADORIS CRANDALL MP Family History Problem Relation Age of Onset Cancer Mother Cancer Father Family Status - Relation Status Age at Mother Alive Father Alive Reason for Visit and Comments: Appointment [375]NormalMemorial Health [facility] Memorial HospitalWRIST RIGHT 3 VWSon 91-78-6924RFESL RIGHT 3 [facility] CENTERniJoint Township District Memorial Hospital Department of Radiology [address] [place] [phone] Patient Name: PATI GALLAGHER : 1975 Sex: F Age: Race: White Pt. Location: 84 Patient Status: O Ordered Date: 12/07/2021 9:45:00 AM Completed Date: 12/07/2021 09:47 AM Requesting Provider: MUNIRA BERRY Attending Provider: MUNIRA BERRY Report Copy To: Signs & Symptoms: S52.521D Torus fx lower end of r radius, subs for fx w routn heal I10 History: Benedict Comments: Evaluate Exam: WRIST RIGHT 3 [facility] WRIST RIGHT 3 S 12/07/2021 9:47 AM CLINICAL INDICATIONS: S52.521D Torus fx lower end of r radius, subs for fx w routn heal I10 TECHNOLOGIST COMMENTS: Patient states having ortho follow up for hx of fx to right wrist in August 2021. QUESTION FOR THE RADIOLOGIST: Evaluate PROTOCOL: AP,Lateral and Oblique views were obtained. COMPARISON: November 06 FINDINGS: Severe osteopenia Progressive healing of the transverse distal radius fracture Slight widening of the distal radial ulnar joint Apparent cystic changes throughout the carpal bones and base of the metacarpals could be related to disuse osteopenia. Attention to that on follow-up to prove normalization IMPRESSION: Healed distal radius fracture Slight widening of the distal radial ulnar joint Numerous cystic lucencies throughout the wrist could be related to disuse osteopenia. Suggest follow-up to prove normalization Electronically signed: Cece Melendez. Transcribed by: [email or web address], User Resident: Electronically Signed by: CECE MELENDEZ @ 12/07/2021 03:42 Peoples HospitalComment on above:Order Comment: EvaluateWRIST RIGHT 3 VWSon 11-92-8521YAAXB RIGHT 3 SUniJoint Township District Memorial Hospital Department of Radiology [address] [place] [phone] Patient Name: PATI GALLAGHER : 1975 Sex: F Age: Race: White Pt. Location: 84 Patient Status: Ordered Date: 11/06/2021 9:40:00 AM Completed Date: 11/06/2021 10:03 AM Requesting Provider: MUNIRA BERRY Attending Provider: Report Copy To: Signs & Symptoms: S52.502A Unsp fracture of the lower end of left radius, init I10 History: Comments: Evaluate Exam: WRIST RIGHT 3 S WRIST RIGHT 3 S 11/06/2021 10:03 AM CLINICAL INDICATIONS: S52.502A Unsp fracture of the lower end of left radius, init I10 TECHNOLOGIST COMMENTS: right wrist pain QUESTION FOR THE RADIOLOGIST: Evaluate PROTOCOL: AP,Lateral and Oblique views were obtained. COMPARISON: October 16, 2021 FINDINGS: There is a stable alignment of the distal radius fracture with sclerosis. No acute abnormalities. Stable degenerative change IMPRESSION: Healing fracture in stable alignment Electronically signed: Fe Elizondo. Transcribed by: [id number], User Resident: Electronically Signed by: FE ELIZONDO @ 11/06/2021 12:59 [facility]oples HospitalComment on above:Order Comment: EvaluateWRIST RIGHT 3 VWSon [id number] RIGHT 3 SUniversUK [facility] Department of Radiology [address] [place] [phone] Patient Name: PATI GALLAGHER : 1975 Sex: F Age: Race: White Pt. Location: Patient Status: D Ordered Date: 10/16/2021 9:30:00 AM Completed Date: 10/16/2021 09:49 AM Requesting Provider: MUNIRA BERRY Attending Provider: MUNIRA BERRY Report Copy To: Signs & Symptoms: M25.531 Pain in right wrist I10 History: Comments: Evaluate Exam: WRIST RIGHT 3 S WRIST RIGHT 3 S 10/16/2021 9:49 AM CLINICAL INDICATIONS: M25.531 Pain in right wrist I10 TECHNOLOGIST COMMENTS: follow up right wrist injury x 2 months ago QUESTION FOR THE RADIOLOGIST: Evaluate PROTOCOL: AP,Lateral and Oblique views were obtained. COMPARISON: 09/17/2021 FINDINGS: There are bone remodeling changes and callus formation at the distal radial metaphyseal fracture with satisfactory gross alignment. IMPRESSION: Satisfactory ongoing process of the distal radial fracture. Electronically signed: Maddy Mello. Transcribed by: [email or web address], User Resident: MADDY MELLO Electronically Signed by: MADDY MELLO @ 10/17/2021 02:18 PM I personally read this/these film(s) with this residentDoctors HospitalComment on above:Order Comment: EvaluateWRIST RIGHT 3 VWSon [id number] RIGHT 3 VWSUniversUK Healthcare Department of Radiology [address] [place] [phone] Patient Name: PATI GALLAGHER : 1975 Sex: F Age: Race: White Pt. Location: Patient Status: Ordered Date: 09/17/2021 8:15:00 AM Completed Date: 09/17/2021 08:17 AM Requesting Provider: PAT RICH Attending Provider: Report Copy To: Signs & Symptoms: S52.531A Colles' fracture of right radius, init for clos fx I10 History: Comments: evaluate Exam: WRIST RIGHT 3 VWS WRIST RIGHT 3 VWS 09/17/2021 8:17 AM CLINICAL INDICATIONS: S52.531A Colles' fracture of right radius, init for clos fx I10 TECHNOLOGIST COMMENTS: right wrist pain fx - 09/01/21 f/u QUESTION FOR THE RADIOLOGIST: evaluate PROTOCOL: AP,Lateral and Oblique views were obtained. COMPARISON: 09/10/2021 FINDINGS: Redemonstration of distal radial metaphysis fracture in anatomic alignment. There is also redemonstration of slight volar angulation of the radial lunate articulation. The scapholunate interval is normal. Fine bony detail is obscured by immobilization material. IMPRESSION: No interval change to distal radial metaphysis fracture. Slight volar angulation of the radial lunate articulation. Approved by:Kel Hernandez09/17/2021 9:28 AM. I, Paco Manrique,have reviewed the image(s) and agree with the findings in this report. Electronically signed: Paco Manrique. Transcribed by: [email or web address], User Resident: KEL STEELE Electronically Signed by: PACO MANRIQUE @ 09/17/2021 09:43 AM I personally read this/these film(s) with this [facility] CenterComment on above:Order Comment: evaluateWRIST RIGHT 3 Son 83-77-8849CFALX RIGHT 3 SUniversUK [facility] Department of Radiology [address] [place] [phone] Patient Name: PATI GALLAGHER : 1975 Sex: F Age: Race: White Pt. Location: Patient Status: Ordered Date: 09/10/2021 8:00:00 AM Completed Date: 09/10/2021 08:00 AM Requesting Provider: MUNIRA BERRY Attending Provider: Report Copy To: Signs & Symptoms: M25.532 Pain in right wrist I10 History: Comments: Evaluate Exam: WRIST RIGHT 3 VWS WRIST RIGHT 3 VWS 09/10/2021 8:00 AM CLINICAL INDICATIONS: M25.532 Pain in right wrist I10 TECHNOLOGIST COMMENTS: right wrist pain fx QUESTION FOR THE RADIOLOGIST: Evaluate PROTOCOL: AP,Lateral and Oblique views were obtained. COMPARISON: October 17, 2020. FINDINGS: Overlying splint obscures fine osseous detail. There is cortical irregularity along the distal metadiaphysis of the radius within the region of the remote prior fracture. No significant displacement. Carpal alignment is maintained. IMPRESSION: Cortical irregularity of the distal radius within the region of prior fracture suggestive of refracture. Correlate for point tenderness. Approved by:Ron Jorgensen09/10/2021 9:19 AM. I, Thomas Norman,have reviewed the image(s) and agree with the findings in this report. Electronically signed: Thomas Norman. Transcribed by: [email or web address], User Resident: RON GOLDBERG Electronically Signed by: THOMAS NORMAN @ 09/10/2021 11:31 AM I personally read this/these film(s) with this [facility] CenterComment on above:Order Comment: EvaluateXR WRIST RT MIN 3 V on 70-45-7695DD WRIST RT MIN 3 VEXAMINATION: XR WRIST RT MIN 3 V, , 09/01/2021 1:13 PM EST INDICATION: Wrist joint pain HISTORY: Ordering Provider Reason for Exam: Technologist Note: Additional: COMPARISON: None. TECHNIQUE: Right wrist x-ray: 3 view(s). FINDINGS: Acute impacted intra-articular distal radial fracture is seen. Joint alignment is anatomic. Joint spaces are preserved. Soft tissue swelling seen about the right wrist IMPRESSION: Acute impacted intra-articular distal right radial fracture. Electronically authenticated by: CHARLEY JOHNSON Date: 2021-09-01 15:[address] [place], [place] [address]XR wrist LT 2Von 41-89-4881FI wrist LT 2[facility] Main [address] [address] XRay Report Signed Patient: Pati Gallagher MR#: [id number] : 1975 Acct:[id number] Age/Sex: 45 / F ADM Date: 12/13/20 Loc: [facility] Room: Type: [facility] Attending Dr: Richelle Broderick MD Ordering Provider: Richelle Broderick MD Date of Service: 12/13/20 XR/XR wrist LT 2V: Unspecified fracture of the lower end of left radius, initia Copies to: Richelle Broderick MD 2 viewsLEFT wrist plain film COMPARISON:11/01/20 HISTORY:Status post distal radius fracture. Continued healing of the distal fracture identified. Bony alignment is unchanged. XR/XR wrist LT 2V IMPRESSION:Healing fracture. Impression dictated by: Alden Franco M.D.12/13/2020 4:20 PM Dictation Location: [place] [address] Transcribed By: [facility] 12/13/20 1620 Dictated By: Alden rFanco DO 12/13/20 1620 Signed By: 12/13/[address] [place] [address] Vital Signs Date TimeVital SignValuePerforming CiclvovunBmmcaygy86-79-5376 09:15-0400Body .48 cmColldeer park hospital [place] Other [employer] Other 10-08-2021 09:15-0400Body mass index (BMI) [Ratio] 27.25 kg/j5Qfncqaamanan Broderick Other [employer] Other 10-08-2021 09:15-0400Body .59 kgCollmanan Broderick Other [employer] Other Encounters Encounter DateEncounter TypeCare ProviderFacilityStart: 07-21-2025 End: 05-21-1332bdplzfbjucHAQZU MUSTAPHAUniSumma Health Barberton Campustart: 05-17-2025 End: 24-10-3503rqncfnmbxdKMEY J [facility]IS[facility] HospitalStart: 04-19-2025 End: 49-69-9805jyaluyhismANHB J [facility] HospitalStart: 03-31-2025 End: 38-86-6824hsypuzuxoeZLQF J [facility] HospitalStart: 12-14-2024 End: 16-95-9331izovglcxivLWTC J [facility] HospitalStart: 10-12-2024 End: 07-61-5797bcsylnivluNPYI J [facility]IS[facility] HospitalStart: 09-17-2024 End: 07-31-8265avcpbogtloQYQS J [facility] HospitalStart: 08-05-2024 End: 26-15-9776gxrvbdffgjEKCT J [facility] HospitalStart: 07-01-2024 End: 37-17-8398xdmgbwdxpfWGCD Tanmay [facility] HospitalStart: 08-19-2023 End: 52-44-8791rzexhapgysYkauzce Calvey Other [employer] Rolith Other Start: 86-28-3549Lsljcb outpatient visit 15 minutes Richelleezio Thrasher OrthopedicsStart: 07-23-2022 End: 61-86-0847myjlbwhhcdKmbtcgz Calvsocorro Other [employer] Other Start: 75-12-6959Ugbqty outpatient visit 15 minutes Richelle CalvsocorroFPG Price OrthopedicsStart: 05-22-2022 End: 83-68-1794bkpfyhmnrkZD ALDEN PAYFacility:L6Vwuen: 11-27-2021 End: 63-97-8745jqhxnlofwoKI NONE LISTED REQUESTFacility:N9Wdtcl: 10-17-2021 End: 94-70-0469dtbargbrzhQI NONE LISTED REQUESTFacility:F9Xnmcb: 09-01-2021 End: 60-52-4920ttahcogjohSU NONE LISTED REQUESTFacility:V9Zpedr: 07-13-2021 Office outpatient visit 15 minutesColleen CalveyFPG Price [facility] Procedures DateProcedureProcedure DetailPerforming ClinicianStart: 04-50-8901Rxkuvm-up visitFollow-upABDUL JEFFREY Payers DatePayer CategoryPayerPolicy [id number] [id number] Health [id number] [id number] 2..840.1.155394.3.57[id number] 2.16.840.1.082043.3.579.[id number] 2..840.1.442417.3.579.[id number] 2.16.840.1.295321.3.579.[id number] 2.16.840.1.401966.3.57[id number] 2.16.840.1.737822.3.579.[id number] 2..840.1.359808.3.579.[id number] 2.16.840.1.895360.3.57[id number] 2.16.840.1.136264.3.579.[id number] 2.16.840.1.499846.3.579.2.585857-63-5480Rchlyjy42626422 2.16840.1.631030.3.579.2.028[id number] 2.840.1.281176.3.579.2.562731-53-9436Bbwrpj's [id number]'s [id number] 2.840.1.315336.19 Social History DateTypeDetailFacilitySex Assigned At [facility] Other Progress note 07-21-2025 Note Date & PowcWuacIqjpymiu75-26-4008 NoteOrthopaedic Surgery Subjective 07/21/25 Pati Gallagher is a 49 y.o. RHD female presenting [...] degrees, radial deviation to 25 degrees. Strength: derrick boat runner 5/5, thumb 5/5, interossei 5/5. wrist extension/flexion [...] imaging performed at this visit. Assessment/Plan Pati Gallagher is a 49 y.o. female with right [...] Medical History: Diagnosis Date Radius fracture 2021 [facility] Evaluation note 08-19-2023 Note Date & WgiiCekdBejdlwyi14-43-8556 Evaluation note* Encounter Date Diagnosis Assessment Notes Treatment Notes Treatment Clinical Notes Aug, Unspecified fracture of the lower end of left radius, initial encounter for closed fracture (ICD-10 - S52.502A) Activity as tolerated. Discussed possible cortisone injection if needed [employer] Other Evaluation note 07-23-2022 Note Date & CqnxKikmLmryzuth77-31-2248 Evaluation note* Encounter Date Diagnosis Assessment Notes Treatment Notes Treatment Clinical Notes Jul, Unspecified fracture of the lower end of left radius, initial encounter for closed fracture (ICD-10 - S52.502A) Discussed with patient to continue to work on strength and motion exercises [employer] Other Clinical Note 11-27-2021 Note Date & BmdeZowvWlqmxrgn79-19-8881 NotePROCEDURE: XR WRIST RT MIN 3 V HISTORY: Fracture of radius ; new injury with increased right wrist pain COMPARISON: XR wrist right 10/17/2021 FINDINGS: BONES:Ongoing bone healing of prior transverse fracture of the radius at the distal diametaphyseal junction. No acute fracture or dislocation. Osteopenia of the carpal bones. SOFT TISSUES:No visible soft tissue swelling. EFFUSION:None visible. OTHER: Negative. IMPRESSION: 1. No appreciable acute abnormality. 2. Stable alignment and near complete bone healing of the prior distal radius fracture. Electronically authenticated by: MARIBELL COUCH Date: 2021-11-27 15:54[facility] Clinical Note 10-17-2021 Note Date & MtzfOkprXujkelzj17-75-9676 NotePROCEDURE: XR WRIST RT MIN 3 V HISTORY: Fracture of radius ; follow-up COMPARISON: XR wrist right 09/01/2021 FINDINGS: BONES:Transverse fracture through the distal radial metaphysis with increased density of the trabecula and stable alignment consistent with partial bone healing. SOFT TISSUES:No visible soft tissue swelling. EFFUSION:None visible. OTHER: Negative. IMPRESSION: 1. Ongoing bone healing of prior distal radius fracture. Electronically authenticated by: MARIBELL COUCH Date: 2021-10-17 14:12[facility] Evaluation note 07-13-2021 Note Date & QjovHfysKmsidjbg42-16-6710 Evaluation note* Encounter Date Diagnosis Assessment Notes Treatment Notes Treatment Clinical Notes Jul, Unspecified fracture of the lower end of left radius, initial encounter for closed fracture (ICD-10 - S52.502A) Extensive discussion about current condition and treatment options available. She will follow through with the functional capacity exam, we will submit for [facility] approval. Patient will continue currentwork restrictions. [employer] Other History general Narrative - Reported Note Date & TypeNoteFacilityHistory general Narrative - Reported* Type Description Date Medical History HTN Medical HistoryBi-PolarMedical HistoryPneumoniaMedical HistoryTubal Ligation Medical HistoryConcussionSurgical HistoryC-SectionSurgical HistoryLap Mddaj2545 Hospitalization HistorySee past surgical hx [employer] Other Summary Purpose Family History No Family History Records FoundNo Family History Records FoundNo Family History Records FoundNo Family History Records FoundNo Family History Records Found Advance Directives No Advanced Directives Records FoundNo Advanced Directives Records FoundNo Advanced Directives Records FoundNo Advanced Directives Records FoundNo Advanced Directives Records Found Additional Source Comments INFORMATION SOURCE (unrecogn ized section and content) DATE CREATED AUTHOR 11/30/2021 [facility] DATE CREATED AUTHOR AUTHOR'S ORGANIZ ATION 12/12/2021 [facility] DATE CREATED AUTHOR AUTHOR'S ORGANIZ ATION 08/09/2022 [facility] DATE CREATED AUTHOR AUTHOR'S ORGANIZ ATION 05/19/[address] [facility] DATE CREATED AUTHOR AUTHOR'S ORGANILEANA ATION 08/01/2025 [facility] REASON FOR VISIT (unrecogniz ed section and content) Recheck Left WristRecheck Le ft WristRecheck Left Wrist FOR RECORDS PERTAINING TO PATIENTS WHO ARE OR HAVE BEEN ENROLLED IN A CHEMICAL DEPENDENCY/SUBSTANCEABUSE PROGRAM, SOME INFORMATION MAY BE OMITTED. This clinical summary was aggregated from multiple sources. Caution should be exercised in using it in the provision of clinical care. This summary normalizes information from multiple sources, and as a consequence, information in this document may materially change the coding, format and clinical context of patient data. In addition, data may be omitted in some cases. CLINICAL DECISIONS SHOULD BE BASED ON THE PRIMARY CLINICAL RECORDS. [employer] provides no warranty or guarantee of the accuracy or completeness of information in this document.
[2025-08-04 09:28] LABS: Anion Gap 13.3; Blood Urea Nitrogen 9.0 mg/dL (7.0-18.0); Calcium 9.6 mg/dL (8.5-10.1); Carbon Dioxide 26.0 mmol/L (21.0-32.0); Chloride 102 mmol/L (98-107); Estimated GFR (African America >60 (>=60 mL/min/1.73m^2); Estimated GFR (Non-African Ame >60 (>=60 mL/min/1.73m^2); Glucose 99 mg/dL (74-106); NT Pro B Type Natriuretic Pept 380.0 pg/mL (<=900.0); Potassium 4.3 mmol/L (3.5-5.1); Sodium 137 mmol/L (136-145)
== END 2025-08-04 10:14 | disposition home or self-care (01) ==
PROVIDERS: Emergency Provider Emergency Medicine
DX: R07.9 Chest pain, unspecified (principal); I10 Essential (primary) hypertension; Z63.4 Disappearance and death of family member; F17.200 Nicotine dependence, unspecified, uncomplicated; Z91.128 Patient's intentional underdosing of medication regimen for other reason
CPT/HCPCS: 36415; 71045; 80048; 83880; 84484; 85025; 93005; 96374; 99285; J1290